=== PATIENT | female | born 1965 | race Caucasian/White ===

== ENCOUNTER 2022-05-15 17:38 | Emergency (ER) | payer OTHER ==
[2022-05-15 17:44] VITALS: BP 119/85; PULSE 88; RESP 17; TEMP 97.8; BMI 32.3
[2022-05-15] MEDS ORDERED: MECLIZINE HCL 25 MG TABLET (FP) PO ONE (21:33)
[2022-05-15 21:38] LABS: BASO % 0.9 % (0-2.0); EOS % 0.7 % (0-4.5); HEMATOCRIT 43.8 % (32.4-45.2); HEMOGLOBIN 14.1 GM/dL (10.7-15.3); LYMPH % 28.4 % (8-40); MCH 27.8 pg (25.7-33.7); MCHC 32.2 g/dl (32.0-36.0); MEAN CELL VOLUME 86.2 fl (80-96); MEAN PLT VOLUME 8.6 fl (7.5-11.1); MONO % 5.1 % (3.8-10.2); NEUT % 64.9 % (42.8-82.8); PLATELET COUNT 307 10^3/uL (134-434); RBC 5.08 M/mm3 (3.60-5.2); RDW 14.5 % (11.6-15.6)
[2022-05-15 21:59] LABS: CALCIUM 9.7 mg/dL (8.5-10.1); INR 1.03 (0.83-1.09); PROTHROMBIN TIME (PATIENT) 11.9 SEC (9.7-13.0)
[2022-05-15 22:00] LABS: ALBUMIN 4.2 g/dl (3.4-5.0); BLOOD UREA NITROGEN 8.2 mg/dL (7-18); MAGNESIUM 2.5 mg/dL (1.8-2.4)
[2022-05-15 22:02] LABS: ACTIVATED PTT 46.3 SECONDS (25.2-36.5)
[2022-05-15 22:03] LABS: CREATININE 0.7 mg/dL (0.55-1.3)
[2022-05-15 22:04] LABS: TOT PROT 8.3 g/dl (6.4-8.2)
[2022-05-15 22:05] LABS: BILIRUBIN,TOTAL 0.4 mg/dL (0.2-1)
[2022-05-15] MEDS ORDERED: MECLIZINE HCL 25 MG TABLET (FP) ONE (22:24)
== END 2022-05-16 01:04 | disposition home or self-care (01) ==
LOC: JER 17:38
DX: R42 Dizziness and giddiness (principal)
CPT/HCPCS: 36415; 70450-TC; 71046-TC-FY; 80053; 83735; 84484; 85025; 85610; 85730; 93005; 93010; 99291